=== PATIENT | male | born 1965 | race Caucasian/White ===

== ENCOUNTER 2016-04-02 05:44 | Emergency (ER) | payer OTHER ==
[~2016-04-02] VITALS: Ht 170.2 cm; Wt 89.2 kg
[~2016-04-02 05:44] MED LIST: ALBUTEROL SULF8.5 GM IH; ANAPROX DS550 M1 PO; ASPIR-LOW81 MG PO; CIPROFLOXACIN500 M1 PO; CITALOPRAM HBR20 MG PO; FAMOTIDINE40 MG PO; HYDROCODON-ACE1 EAC7 PO; LEVAQUIN750 MG PO; LOVASTATIN20 MG PO; LOVASTATIN40 MG PO; NITROGLYCERIN0.4 MG SL; OMEPRAZOLE40 M1 PO; PERCOCET 5/31 TABLET PO; PRAVASTATIN SOD40 MG PO; ULTRAM50 MG PO; [UNRECOGNIZED DRUG - REMARK]; [UNRECOGNIZED DRUG - REMARK]
[2016-04-02 06:13] LABS: HEMATOCRIT 48.5 % (38.0-50.0); MCH 29.5 PG (29.0-34.0); MCHC 35.7 G/DL (30.0-36.0); MCV 82.8 FL (86-99); MEAN PLAT.VOLUME 10.1 uM^3 (9.0-12.4); PLATELET COUNT 341 K/uL (156-360); RBC DIS.WIDTH-CV 13.2 % (11.8-14.6); RBC DIS.WIDTH-SD 39.7 % (39-53); RED BLOOD COUNT 5.86 M/uL (4.00-5.50)
[2016-04-02 06:18] LABS: WHITE BLOOD COUNT 15.1 K/uL (4.1-10.2)
[2016-04-02 06:39] LABS: CHLORIDE 101 mEq/L (99-109); SODIUM 137 mEq/L (136-147)
[2016-04-02 06:42] LABS: GLUCOSE 135 mg/dL (70-99)
[2016-04-02 06:43] LABS: ANION GAP 13 MEQ/L (2-14)
[2016-04-02 06:44] LABS: TOTAL BILIRUBIN 1.5 mg/dL (0.0-1.0)
[2016-04-02 06:45] LABS: ALKALINE PHOSPHATASE 74 IU/L (3-129); GFR ESTIMATE (CALCULATED) > 59 mL/min/
[2016-04-02 06:47] LABS: UREA NITROGEN (BUN) 19 mg/dL (9-23)
[2016-04-02 08:00] LABS: ADD MIUA? NO; BILIRUBIN NEGATIVE; BLOOD NEGATIVE; COLOR YELLOW ((YELLOW)); GLUCOSE (STRIP) NEGATIVE; KETONES 5; LEUKOCYTES NEGATIVE; NITRITE NEGATIVE; PROTEIN (STRIP) 30; UCUL ADDED? NO
[2016-04-02 08:15] LABS: INFLUENZA A VIRAL ANTIGEN ND; INFLUENZA B VIRAL ANTIGEN ND
[2016-04-02 08:16] LABS: SPECIFIC GRAVITY 1.068 (1.000-1.030)
[2016-04-02] MEDS ORDERED: CARAFATE1 GM PO (09:38)
[2016-04-02] MEDS ORDERED: TYLENOL WITH C1 EACH PO (09:39)
[2016-04-02] MEDS ORDERED: ZOFRAN ODT4 MG PO (09:40)
[2016-04-02 09:56] VITALS: BP 00/00
== END 2016-04-02 09:57 | disposition home or self-care (01) ==
LOC: EME 05:44
PROVIDERS: Emergency Medicine
DX: K52.9 Noninfective gastroenteritis and colitis, unspecified (principal); E86.0 Dehydration; D72.829 Elevated white blood cell count, unspecified; Z87.442 Personal history of urinary calculi; F17.200 Nicotine dependence, unspecified, uncomplicated
CPT/HCPCS: 71020; 74177; 80053; 81003; 85027; 87502; 99281; 99284; J1885; J2405; J7030; S0028